=== PATIENT | male | born 1980 | race Caucasian/White ===

== ENCOUNTER 2019-08-18 16:51 | Emergency (ER) | payer SELFPAY ==
[2019-08-18] MEDS ORDERED: Sodium Chloride 0.9% 10 ML Syringe FLUSH PRN (16:55)
[2019-08-18] MEDS ORDERED: Sodium Chloride 0.9% 1,000 ML IV ONE (16:55)
[2019-08-18] MEDS ORDERED: Sodium Chloride 0.9% 2.5 ML Syringe FLUSH PRN (16:55)
--- NOTE | 2019-08-18 16:55 | EDM.PDOC ---
ED HPI GENERAL MEDICAL PROBLEM - General Chief Complaint: Chest Pain Stated Complaint: CHEST PAIN Time Seen by Provider: 08/18/19 16:54 Source of Information: Reports: Patient History Limitations: Reports: No Limitations - History of Present Illness INITIAL COMMENTS - FREE TEXT/NARRATIVE: HISTORY AND PHYSICAL: History of present illness: Patient is a 39-year-old male presents to the ED with complaint of chest pain. States he been having chest pain for about 1 week. He states the pain comes and goes and has occasional sharp pain on the left the right side of the chest and an occasional burning sensation. He denies shortness of breath but states when he tries to take a really deep breath he feels like it is restricted. He denies nausea, vomiting, abdominal pain, cough, left arm or jaw pain. He reports smoking 1 pack per day 10 years. Review of systems: As per history of present illness and below otherwise all systems reviewed and negative. Past medical history: As per history of present illness and as reviewed below otherwise noncontributory. Surgical history: As per history of present illness and as reviewed below otherwise noncontributory. Social history: No reported history of drug or alcohol abuse. Family history: As per history of present illness and as reviewed below otherwise noncontributory. Physical exam: General: Patient sitting comfortably in no acute distress and nontoxic appearing HEENT: Atraumatic, normocephalic, pupils reactive, negative for conjunctival pallor or scleral icterus, mucous membranes moist, throat clear, neck supple, nontender, trachea midline. No meningeal signs. Lungs: Clear to auscultation, breath sounds equal bilaterally, Pain to palpation along either side of the sternum Heart: S1S2, regular, negative for clicks, rubs, or overt murmur. Abdomen: Soft, nondistended, nontender. Negative for masses or hepatosplenomegaly. Negative for costovertebral tenderness. No rigidity, rebound , guarding. Pelvis: Stable nontender. Genitourinary: Deferred. Rectal: Deferred. Extremities: Atraumatic, negative for cords or calf pain. Neurovascular unremarkable. Neuro: Awake, alert, oriented. Cranial nerves II through XII unremarkable. Cerebellum unremarkable. Motor and sensory unremarkable throughout. Exam nonfocal. Notes: Diagnostics: CBC, CMP, troponin, EKG, CXR Therapeutics: [] Prescriptions: Impression: Atypical chest pain, costochondritis Plan: Alternate tylenol and ibuprofen as needed Follow up with primary care provider Return to ED as needed as discussed Definitive disposition and diagnosis as appropriate pending reevaluation and review of above. chest Pain Score (Numeric/FACES): 6 - Related Data Allergies Allergy/AdvReac Type Severity Reaction Status Date / Time No Known Allergies Allergy Verified 08/18/19 16:56 Home Meds: Home Meds High Cholesterol Medication 08/18/19 [History] ED ROS GENERAL - Review of Systems Review Of Systems: ROS reveals no pertinent complaints other than HPI. ED EXAM, GENERAL - Physical Exam Exam: See Below (see dictation) Course - Vital Signs Last Recorded V/S: Last Vital Signs Temp 97.7 F 08/18/19 17:00 Pulse 100 08/18/19 17:00 Resp 18 08/18/19 17:00 BP 146/95 H 08/18/19 17:00 Pulse Ox 98 08/18/19 17:00 - Orders/Labs/Meds Orders: Active Orders 24 hr Category Date Time Status Cardiac Monitoring [RC] . DIRECTED Care 08/18/19 16:55 Active EKG Documentation Completion [RC] STAT Care 08/18/19 16:55 Active Sodium Chloride 0.9% [Saline Flush] Med 08/18/19 16:55 Active 10 ml FLUSH ASDIRECTED PRN Sodium Chloride 0.9% [Saline Flush] Med 08/18/19 16:55 Active 2.5 ml FLUSH ASDIRECTED PRN Saline Lock Insert [OM.PC] Stat Oth 08/18/19 16:55 Ordered Medication Orders Sodium Chloride (Saline Flush) 10 ml FLUSH ASDIRECTED PRN PRN Reason: Keep Vein Open Last Admin: 08/18/19 17:18 Dose: 10 ml Sodium Chloride (Saline Flush) 2.5 ml FLUSH ASDIRECTED PRN PRN Reason: Keep Vein Open Last Admin: 08/18/19 17:19 Dose: 2.5 ml Labs: Laboratory Tests 08/18/19 08/18/19 Range/Units 17:05 17:05 WBC 9.95 (4.0-11.0) K/uL RBC 5.85 (4.50-5.90) M/uL Hgb 16.4 (13.0-17.0) g/dL Hct 48.0 (38.0-50.0) % MCV 82.1 (80.0-98.0) fL MCH 28.0 (27.0-32.0) pg MCHC 34.2 (31.0-37.0) g/dL RDW Std Deviation 41.4 (28.0-62.0) fl RDW Coeff of Marlo 14 (11.0-15.0) % Plt Count 187 (150-400) K/uL MPV 11.20 (7.40-12.00) fL Neut % (Auto) 60.3 (48.0-80.0) % Lymph % (Auto) 29.6 (16.0-40.0) % [place] % (Auto) 7.2 (0.0-15.0) % Eos % (Auto) 2.4 (0.0-7.0) % Baso % (Auto) 0.5 (0.0-1.5) % Neut # (Auto) 6.0 H (1.4-5.7) K/uL Lymph # (Auto) 3.0 H (0.6-2.4) K/uL [place] # (Auto) 0.7 (0.0-0.8) K/uL Eos # (Auto) 0.2 (0.0-0.7) K/uL Baso # (Auto) 0.1 (0.0-0.1) K/uL Nucleated RBC % 0.0 /100WBC Nucleated RBCs # 0 K/uL Sodium 144 (136-148) mmol/L Potassium 3.7 (3.5-5.1) mmol/L Chloride 106 (98-107) mmol/L Carbon Dioxide 27.1 (21.0-32.0) mmol/L BUN 11 (7.0-18.0) mg/dL Creatinine 1.0 (0.8-1.3) mg/dL Est Cr Clr Drug Dosing 102.40 mL/min Estimated GFR (MDRD) > 60.0 ml/min Glucose 104 (74-106) mg/dL Calcium 8.8 (8.5-10.1) mg/dL Total Bilirubin 0.4 (0.2-1.0) mg/dL AST 25 (15-37) IU/L ALT 52 (14-63) IU/L Alkaline Phosphatase 81 (46-116) U/L Troponin I < 0.050 (0.000-0.056) ng/mL Total Protein 7.2 (6.4-8.2) g/dL Albumin 3.9 (3.4-5.0) g/dL Globulin 3.3 (2.6-4.0) g/dL Albumin/Globulin Ratio 1.2 (0.9-1.6) Meds: Medications Generic Name Dose Route Start Last Admin Trade Name Freq PRN Reason Stop Dose Admin Sodium Chloride 10 ml 08/18/19 16:55 08/18/19 17:18 Saline Flush FLUSH 10 ml ASDIRECTED PRN Administration Keep Vein Open Sodium Chloride 2.5 ml 08/18/19 16:55 08/18/19 17:19 Saline Flush FLUSH 2.5 ml ASDIRECTED PRN Administration Keep Vein Open Discontinued Medications Generic Name Dose Route Start Last Admin Trade Name Freq PRN Reason Stop Dose Admin Sodium Chloride 1,000 mls @ 999 mls/hr 08/18/19 16:55 08/18/19 17:18 Normal Saline IV 08/18/19 17:55 999 mls/hr BOLUS ONE Administration Departure - Departure Time of Disposition: 18:08 Disposition: Home, Self-Care 01 Condition: Good Clinical Impression: Atypical chest pain Referrals: PCP,Unknown [Primary Care Provider] - Forms: ED Department Discharge Additional Instructions: The following information is given to patients seen in the emergency department who are being discharged to home. This information is to outline your options for follow-up care. We provide all patients seen in our emergency department with a follow-up referral. The need for follow-up, as well as the timing and circumstances, are variable depending upon the specifics of your emergency department visit. If you don't have a primary care physician on staff, we will provide you with a referral. We always advise you to contact your personal physician following an emergency department visit to inform them of the circumstance of the visit and for follow-up with them and/or the need for any referrals to a consulting specialist. The emergency department will also refer you to a specialist when appropriate. This referral assures that you have the opportunity for follow-up care with a specialist. All of these measure are taken in an effort to provide you with optimal care, which includes your follow-up. Under all circumstances we always encourage you to contact your private physician who remains a resource for coordinating your care. When calling for follow-up care, please make the office aware that this follow-up is from your recent emergency room visit. If for any reason you are refused follow-up, please contact the [facility] Emergency Department at and asked to speak to the emergency department charge nurse. [facility] [address] [place] [id number] [facility] [address] [place] [id number] Alternate tylenol and ibuprofen as needed Follow up with primary care provider Return to ED as needed as discussed - My Orders Last 24 Hours: My Active Orders 08/18/19 16:55 Cardiac Monitoring [RC] . DIRECTED EKG Documentation Completion [RC] STAT Sodium Chloride 0.9% [Saline Flush] 10 ml FLUSH ASDIRECTED PRN Sodium Chloride 0.9% [Saline Flush] 2.5 ml FLUSH ASDIRECTED PRN Saline Lock Insert [OM.PC] Stat - Assessment/Plan Last 24 Hours: My Active Orders 08/18/19 16:55 Cardiac Monitoring [RC] . DIRECTED EKG Documentation Completion [RC] STAT Sodium Chloride 0.9% [Saline Flush] 10 ml FLUSH ASDIRECTED PRN Sodium Chloride 0.9% [Saline Flush] 2.5 ml FLUSH ASDIRECTED PRN Saline Lock Insert [OM.PC] Stat
--- NOTE | 2019-08-18 17:36 | CR ---
INDICATION: Chest pain. TECHNIQUE: AP portable chest. FINDINGS: Clear lungs. Normal heart size and pulmonary vascularity. Normal included skeletal thorax. IMPRESSION: Negative portable chest. Dictated by Robb Chase MD @ Aug 18 2019 5:35PM Signed by Dr. Robb Chase @ Aug 18 2019 5:35PM
[2019-08-18 17:55] LABS: BLOOD UREA NITROGEN,BUN 11 mg/dL (7.0-18.0); CARBON DIOXIDE,CO2 27.1 mmol/L (21.0-32.0); CHLORIDE,CL 106 mmol/L (98-107); GLUCOSE RANDOM 104 mg/dL (74-106); POTASSIUM,K 3.7 mmol/L (3.5-5.1); SODIUM,NA 144 mmol/L (136-148)
== END 2019-08-18 18:20 | disposition home or self-care (01) ==
LOC: MW.ED 16:51
DX: R07.89 Other chest pain (principal); M94.0 Chondrocostal junction syndrome [Tietze]; F17.210 Nicotine dependence, cigarettes, uncomplicated
CPT/HCPCS: 36415; 71045; 80053; 84484; 85025; 93005; 96360; 99285; J7040; 99283